=== PATIENT | female | born 1960 | race Asian ===

== ENCOUNTER 2018-08-28 09:29 | Day surgery (SDC) | payer OTHER ==
[2018-08-28] MEDS ORDERED: MIDAZOLAM 1 MG/ML 2 ML INJ ×3 (11:55)
[2018-08-28] MEDS ORDERED: FENTAnyl 50 MCG/ML VIAL (11:55)
== END 2018-08-28 12:23 | disposition home or self-care (01) ==
LOC: GIL 09:29
DX: Z12.11 Encounter for screening for malignant neoplasm of colon (principal); K21.9 Gastro-esophageal reflux disease without esophagitis; K29.60 Other gastritis without bleeding; K64.8 Other hemorrhoids
CPT/HCPCS: 43239; 88305; 88312